=== PATIENT | female | born 1985 | race Asian ===

== ENCOUNTER 2019-04-03 10:05 | Emergency (ER) | payer OTHER ==
[~2019-04-03] VITALS: Ht 162.6 cm; Wt 86.2 kg
[2019-04-03 10:09] VITALS: BP 133/96
[2019-04-03] MEDS ORDERED: ACETAMINOPHEN EXTRA STRENGTH 500 MG TAB PO ONE (10:15)
--- NOTE | 2019-04-03 10:15 | NUR ---
PATIENT AMBULATED WITH STEADY GAIT TO BED 8
--- NOTE | 2019-04-03 10:17 | NUR ---
TYLENOL EXTRA STRENGTH ADMINISTERED FOR PTS FEVER
--- NOTE | 2019-04-03 10:32 | NUR ---
C/O FEVER, CP WITH PRODUCTIVE COUGH , SORE THROAT , BODY ACHES X YESTERDAY. TEMP 101.5 AT THIS TIME. PT REPORTS PAIN 5/10. PT ALERT AND AWAKE. AMBULATORY. RR EVEN AND UNLABORED. LUNGS CLEAR BILTERALLY. PT WAS REFFERED FROM URGENT CARE FOR FEVER AND HIGH BP. BP WNL UPON TRIAGE. MED HX: DENIES
--- NOTE | 2019-04-03 10:36 | NUR ---
PT REPORTS TAKING ROBITUSSIN FOR COUGH, MINIMAL RELIEF
[2019-04-03 10:40] VITALS: BP 127/88
--- NOTE | 2019-04-03 10:57 | NUR ---
Patient discharged with v/s stable. Written and verbal after care instructions given and explained. Patient alert, oriented and verbalized understanding of instructions. Ambulatory with steady gait. All questions addressed prior to discharge. ID band removed. Patient advised to follow up with PMD. Rx of IBU, TAMIFLU, PROMETHAZINE given. Patient educated on indication of medication including possible reaction and side effects. Opportunity to ask questions provided and answered.
== END 2019-04-03 10:57 | disposition home or self-care (01) ==
LOC: MED 10:05
DX: J11.1 Influenza due to unidentified influenza virus with other respiratory manifestations (principal)
CPT/HCPCS: 99283